=== PATIENT | male | born 1985 | race Caucasian/White ===

== ENCOUNTER 2018-01-30 15:34 | Emergency (ER) | payer OTHER ==
--- NOTE | 2018-01-30 15:38 | EDPHY ---
H & P Time Seen by Provider: 01/30/18 15:35 HPI/ROS: Chief complaint. Seizure HPI. Patient is 32-year-old male here by EMS after having a seizure. Patient is visiting from out of town for job application. He has a seizure disorder from a traumatic brain injury 5 years ago. He takes Keppra and Depakote for his seizures. Reportedly he took extra of these today because of concern for stress for the job interview. During the interview he had a 45 sec generalized tonic-clonic seizure. EMS was contacted and patient had a 2nd seizure in the ambulance just prior to arrival. Unknown blood sugar. Patient is currently postictal ROS--unable as patient is postictal Past Medical/Surgical History: Per EMS TBI and seizure disorder Further history from the circumstances of today are obtained from the patient's friend. The friend however did not know that the patient had a seizure disorder. He does not know about medication. The friend contacted the patient's mother who confirms seizure disorder and notes that his seizures can be precipitated by stress Social History: Unknown Physical Exam: General Appearance: Eyes open for the patient but he does not speak. He will raise his hand to shake my hand when offered but otherwise does not follow commands. Eyes: Pupils equal round reactive. Maybe slight leftward gaze.. ENT, Mouth: Mucous membranes are moist. Respiratory: There are no retractions, lungs are clear to auscultation. Cardiovascular: Regular rate and rhythm. Gastrointestinal: Abdomen is soft and nontender, no masses, bowel sounds normal. Neurological: Eyes open but not following commands. No strength in left arm or left leg but normal strength in right arm and leg Skin: Warm and dry, no rashes. Musculoskeletal: Neck is supple nontender. Extremities symmetrical, full range of motion. Psychiatric: Patient does not speak Constitutional: Initial Vital Signs Temperature (C) 36.7 C 01/30/18 16:15 Heart Rate 114 H 01/30/18 16:15 Respiratory Rate 20 01/30/18 16:15 Blood Pressure 181/97 H 01/30/18 16:15 O2 Sat (%) 100 01/30/18 16:15 O2 Delivery Mode Nasal Cannula O2 (L/minute) 2 Allergies/Adverse Reactions: No Known Drug Allergies Allergy (Verified 01/30/18 16:15) Home Medications: Medication Instructions Recorded Depakote 01/30/18 Keppra 01/30/18 Medical Decision Making - Diagnostics Imaging Results: Noncontrast head CT reviewed by me and discussed with Dr. Costa shows sequelae of old trauma including cephalomedullary showed a and evidence of an old craniotomy. There is some atrophy. However no acute intracranial bleeding Procedures: IV normal saline, monitor. Seizure precautions Approximately 5 min after arrival patient has another generalized tonic-clonic seizure lasting about 30 sec. Treated with IV Ativan. Patient is given IV Keppra. ED Course/Re-evaluation: I consulted and discussed the case with Dr. Kait torres, neurology who agrees with further Keppra and the head CT. He recommends transferring to [facility] for continuous EEG monitoring for possible nonconvulsive status if the patient does not clear quickly. The patient's friend comes and tells us that the patient had stayed overnight with him before the job interview. He was unaware of seizure disorder and any medical history. He said the patient appeared well during the visit last night and this morning. No drugs or alcohol were observed Re-evaluation again at 4:20 p.m. After return from head CT. Patient still does not speak. He will raise his hand to shake my hand. He now has 1/5 strength with left hand and left leg but cannot raise either of these off the bed. Eyes may be slightly deviated to the left of midline I consulted and discussed the case with , neurologist for [facility]. He recommends transport and admission to [facility] ICU. Re-evaluation again at 4:45 a.m. P.m.. Patient now answers okay when I ask him how he is doing. Otherwise some conversation with friends. Exam now shows 3/5 strength to left arm and left foot. Somewhat ataxic with the movement however. Differential Diagnosis: Recurrent seizures in a man with known seizure disorder. He was without any strength on the left arm left leg and now is regaining this. 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 He has a nonacute head CT however he show sequelae of previous traumatic brain injury. Concern is for nonconvulsive status. He will be admitted to [facility] ICU. It is possible that these are also altitude related seizures as a precipitant. Critical Care Time: Critical care time exclusive of procedures 40 min - Data Points Laboratory Results: Laboratory Results 01/30/18 15:47 01/30/18 15:47 Medications Given: Discontinued Medications Sodium Chloride (Ns) 1,000 mls @ 0 mls/hr IV ONCE ONE; Wide Open PRN Reason: Protocol Stop: 01/30/18 15:40 Last Admin: 01/30/18 16:09 Dose: 1,000 mls Levetiracetam (Keppra (Premix)) 100 mls @ 400 mls/hr IV EDNOW ONE Stop: 01/30/18 15:54 Last Admin: 01/30/18 16:31 Dose: 100 mls Ketorolac Tromethamine (Toradol) 30 mg IVP EDNOW ONE Stop: 01/30/18 17:50 Last Admin: 01/30/18 17:50 Dose: 30 mg Lorazepam (Ativan Injection) 1 mg IVP EDNOW ONE Stop: 01/30/18 15:46 Last Admin: 01/30/18 16:05 Dose: 1 mg Departure - Departure Disposition: Acute Care [facility] Clinical Impression: Recurrent seizures Condition: Fair Referrals: Patient,NotPresent [Unknown] - As per Instructions
[2018-01-30] MEDS ORDERED: NS 1,000 ML IV ONE (15:39)
[2018-01-30] MEDS ORDERED: levETIRAcetam 500MG/NACL 100 ML IV ONE (15:40)
[2018-01-30] MEDS ORDERED: LORazepam 2 MG/ML INJ IVP ONE (15:45)
[2018-01-30] MEDS ORDERED: LORazepam 2 MG/ML INJ ONE (15:45)
[2018-01-30 15:59] LABS: PLATELET COUNT 306 10^3/uL (150-400)
[2018-01-30] MEDS ORDERED: KETOROLAC 30 MG/1 ML SDV ONE (17:48)
[2018-01-30] MEDS ORDERED: KETOROLAC 30 MG/1 ML SDV IVP ONE (17:49)
[2018-01-30 18:10] VITALS: BP 130/79
== END 2018-01-30 18:08 | disposition short-term general hospital (02) ==
DX: G40.909 Epilepsy, unspecified, not intractable, without status epilepticus (principal); E86.9 Volume depletion, unspecified
CPT/HCPCS: 82947-QW; 96365; J1885; J1953; J2060